=== PATIENT | female | born 1960 | race African-American/Black ===

== ENCOUNTER 2019-06-11 08:50 | Outpatient (CLI) | payer OTHER, SELFPAY ==
--- NOTE | ~2019-06-11 | CT_ITS ---
EXAMINATION: CT chest wo con DATE: 06/11/2019 09:18 INDICATION: Pulmonary nodules. Two-year follow-up. TECHNIQUE: Computed tomography (CT) of the chest was performed without intravenous contrast. The dose -length product was 968.48 mGy-cm. Automated exposure control and iterative reconstruction technique were employed. COMPARISON: No prior studies for comparison. 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 No significant pleural or pericardial effusion. No thoracic lymphadenopathy. There are gallstones. No focal airspace consolidation. No endobronchial lesions. No pneumothorax. Heart size is normal. IMPRESSION: 1. 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 Co mparison to previous outside CT examinations recommended. Reviewed, dictated and finalized at location A. IMPRESSION: 1. Right lower lobe nodule measuring 11 mm with areas of macroscopic fat, likel y benign hamartoma. Comparison to previous outside CT examinations recommended.
== END 2019-06-11 08:51 | disposition home or self-care (01) ==
LOC: ANHIMG 08:58
DX: R91.8 Other nonspecific abnormal finding of lung field (principal)
CPT/HCPCS: 71250

== ENCOUNTER 2019-09-17 11:32 | Outpatient (CLI) | payer OTHER, SELFPAY ==
--- NOTE | 2019-09-19 13:56 | P.PCNPFT_ITS ---
PFT Interpretation PFT Interpretation: DOS: 09/17/2019 REQUESTING: Quiana Jones APRN REASON FOR TESTING: Dyspnea on exertion PULMONARY FUNCTION TESTS Results are reliable and reproducible. Spirometry: FEV1 74% 1.94 L. FEV1 73%, 2.56 L. FEV1% is 76%, normal. FEF25- 75% is decreased at 57%. After bronchodilator there is a 25% increase in the FEF 25-75% which is significant. Lung volumes: TLC 99%, normal. There is no restriction. Residual volume 137% mildly increased and consistent with air trapping. Airway resistance 88% normal. ERV is very low consistent with increased BMI. Diffusion: DLCO 53%, moderately decreased. Flow volume loop: Mild scooping of the expiratory limb. IMPRESSION: Mild obstructive ventilatory impairment which is moderate in the small airways, with good response to bronchodilators in the small airways. Air trapping is present. Moderate diffusion impairment is present, and is the most significant finding on the test. The DLCO is normally increased in obesity. Isolated decreased diffusion can be seen in anemia, early ILD, chronic thromboembolic disease and other conditions. Decreased diffusion with obstruction can be seen in bronchiectasis and other conditions. Gypsy Tyler MD
== END 2019-09-17 11:33 | disposition home or self-care (01) ==
PROVIDERS: PCP Family Medicine
DX: R06.09 Other forms of dyspnea (principal); R94.2 Abnormal results of pulmonary function studies
CPT/HCPCS: 94060; 94726; 94729

== ENCOUNTER 2021-12-06 11:29 | Emergency (ER) | payer OTHER, SELFPAY ==
--- NOTE | ~2021-12-06 | XR_ITS ---
EXAMINATION: XR knee RT min 4V DATE: 12/06/2021 13:22 INDICATION: Right knee pain. Fall. TECHNIQUE: 4 views of right knee were obtained. COMPARISON: None. FINDINGS: There is varus angulation at the knee. No fracture. There is severe osteoarthritis of media l and patellofemoral compartments and moderate osteoarthritis of lateral compartment. There is a mode rate-sized knee joint effusion with loose body. IMPRESSION: 1. Severe right knee osteoarthritis. 2. Moderate-sized right knee joint effusion with loose body. Reviewed, dictated and finalized at location A.
[2021-12-06 11:42] VITALS: BP 182/101; PULSE 85; RESP 16; O2SAT 97
[2021-12-06] MEDS: ONDANSETRON INJ 4 MG/2 ML VIAL IV PUSH (13:04)
[2021-12-06] MEDS: MORPHINE SULFATE (*CRX) 4 MG/ML INJ IV PUSH (13:04)
--- NOTE | 2021-12-06 13:06 | ED.LOWEXIN ---
HPI - Extremity Injury (Lower) General Chief Complaint: Extremity Injury, Lower Stated Complaint: right leg, knee pain Time Seen by Provider: 12/06/21 11:43 Source: patient Mode of arrival: ambulatory Limitations: no limitations History of Present Illness HPI Narrative: Patient is a 61-year-old female who presents ED with report of right knee pain. Patient reports she fell in June of this year and landed directly onto her knee. She has had intermittent pain in her right knee since then. She states pain became worse today and feels unstable. She has been taking Tylenol and naproxen at home with minimal relief. Denies any new injury. She has previously been seen at an outside hospital for this pain and had negative x-rays. She has not seen an vocational services specialist. Denies any numbness, tingling. Patient is able to ambulate but requires assistance with transfers and otherwise uses a wheelchair for mobility due to her size. Patient has history of pulmonary embolism and is currently on Xarelto. She has not missed any doses. Related Data Home Medications Medication Instructions Recorded Confirmed atorvastatin 10 mg tablet mg 12/06/21 hydrochlorothiazide 25 mg tablet mg 12/06/21 lisinopril 5 mg tablet mg 12/06/21 rivaroxaban 20 mg tablet (Xarelto) mg 12/06/21 Allergies Allergy/AdvReac Type Severity Reaction Status Date / Time No Known Allergies Allergy Verified 12/06/21 11:47 Review of Systems Review of Systems: CONSTITUTIONAL: Denies fever, chills, or sweats. CARDIOVASCULAR: Denies chest pain. RESPIRATORY: Denies dyspnea. GASTROINTESTINAL: Denies nausea, vomiting. MUSCULOSKELETAL: Reports R knee pain. NEUROLOGIC: Denies tingling, numbness, or weakness. All systems reviewed & are unremarkable except as noted in HPI and below [facility] Past Medical History Medical History (Updated 12/06/21 @ 16:18 by Jaycee Burnett PA-C) History of pulmonary embolism HLD (hyperlipidemia) HTN (hypertension) Surgical History Surgical History (Updated 12/06/21 @ 16:15 by Jaycee Burnett PA-C) No pertinent past surgical history Social History Social History (Updated 12/06/21 @ 16:15 by Jaycee Burnett PA-C) Smoking status: Never smoker Living arrangements: with family Exam Narrative: GENERAL: Well appearing, morbidly obese, non-toxic, in no acute distress. HEAD: Normocephalic, atraumatic. NECK: Supple. No adenopathy, no masses. RESPIRATORY: Airway patent, respirations nonlabored. Clear to auscultation bilaterally, no rales, rhonchi, wheezing. CARDIOVASCULAR: Regular rate and rhythm without murmurs, rubs, or gallops. Pedal pulses 2+ and equal bilaterally. MUSCULOSKELETAL: Moves all extremities. Mild limited flexion ROM of R knee due to pain. Tenderness to palpation over the anterior superior joint space of right knee. No significant pain with ballottement of patella. No significant swelling, though exam somewhat limited due to size and anatomy. No calf tenderness. No redness or warmth of knee. SKIN: Warm, dry, normal color. No rashes. NEURO: A&O X3. Speech clear. Cranial nerves II-XII grossly intact. Steady gait. No ataxic movements. PSYCHIATRIC: Appropriate mood and affect. Normal interaction. Course Vital Signs Vital signs: Vital Signs Pulse Rate 85 12/06/21 11:42 Respiratory Rate 16 12/06/21 11:42 Blood Pressure 182/101 H 12/06/21 11:42 Pulse Oximetry 97 12/06/21 11:42 Pulse Rate 64 12/06/21 16:39 Respiratory Rate 18 12/06/21 16:39 Blood Pressure 117/74 12/06/21 16:39 Pulse Oximetry 98 12/06/21 16:39 MDM - Extremity Injury (Lower) MDM Narrative Medical decision making narrative: Patient presented to ED with report of acute on chronic right knee pain status post mechanical fall in June. Difficult to fully appreciate pain and swelling on exam due to patient's size. She does have some limitation in range of motion. X-ray of right knee performed show
[2021-12-06 14:46] VITALS: BP 128/78; O2SAT 96
[2021-12-06 16:13] VITALS: BP 152/79; PULSE 66; RESP 16; O2SAT 98
[2021-12-06 16:39] VITALS: BP 117/74; PULSE 64; RESP 18; O2SAT 98
== END 2021-12-06 16:40 | disposition home or self-care (01) ==
PROVIDERS: Emergency Provider General Practice; PCP Family Medicine
DX: M17.11 Unilateral primary osteoarthritis, right knee (principal); E78.5 Hyperlipidemia, unspecified; I10 Essential (primary) hypertension; Z86.711 Personal history of pulmonary embolism; Z79.01 Long term (current) use of anticoagulants
CPT/HCPCS: 73564; 96374; 96375; 99284; J2270; J2405